=== PATIENT | female | born 1995 | race Caucasian/White ===

== ENCOUNTER 2017-12-16 17:57 | Outpatient (CLI) | payer OTHER ==
--- NOTE | 2017-12-16 19:32 | Non Stress Test Report ---
Non Stress Test Datetime Report Generated by CPN: 12/16/2017 19:32 DEMOGRAPHIC EGA NST: 36.0 INDICATION Indication for Study: Other Indication for Study (NST) Other: GDM VITAL SIGNS Temperature - NST: 98.8 Pulse - NST: 80 RESP - NST: 18 NBPSYS NST: 93 NBPDIA NST: 55 MONITORING Monitor Explained: Monitor Explained; Test Explained; Patient Verbalized Understanding Time on Monitor: 12/16/2017 18:15 Time off Monitor: 12/16/2017 18:40 NST Duration: 25 NST INTERVENTIONS NST Interventions: PO Hydration Physician Notified NST: Dr. Moreira BABY A: [id number] BABY A Movement : Present Contraction Frequency : 0 FHR Baseline : 120 Accelerations : 15X15 Decelerations : None Variability : Moderate 6-25bpm NST Review: Meets Criteria for Reactive NST NST Review and Verified By : Gonzales davis RN NST Results: Reactive NST REPORT Report Trigger: Send Report
== END 2017-12-16 19:00 | disposition home or self-care (01) ==
LOC: LC 17:57
PROVIDERS: ATTEND Obstetrics & Gynecology
PROC: 4A1HXCZ Monitoring of Products of Conception, Cardiac Rate, External Approach (ICD-10-PCS; principal; 2017-12-16)
DX: O24.419 Gestational diabetes mellitus in pregnancy, unspecified control (principal); Z3A.36 36 weeks gestation of pregnancy
CPT/HCPCS: 59025

== ENCOUNTER 2018-01-07 01:18 | Inpatient (IN) | payer OTHER ==
[2018-01-07 02:57] LABS: APPEARANCE,URINE SLIGHTLY-CLOUDY; BILIRUBIN,URINE NEGATIVE (NEGATIVE); COLOR,URINE YELLOW; GLUCOSE, URINE NEGATIVE (NEGATIVE); KETONES,URINE NEGATIVE (NEGATIVE); LEUKOCYTE ESTERASE,URINE NEGATIVE (NEGATIVE); NITRITE,URINE NEGATIVE (NEGATIVE); PROTEIN,URINE NEGATIVE (NEGATIVE); URINE SPECIFIC GRAVITY 1.015; UROBILINOGEN,URINE NEGATIVE mg/dL (<2.0)
--- NOTE | 2018-01-07 03:17 | Admission Physical ---
Datetime Report Generated by CPN: 01/07/2018 03:17 CURRENT ADMISSION Chief Complaint: Uterine Contractions Indication for Induction: Maternal Diabetes Admit Impression : Term, Intrauterine ; Active Labor Admit Plan: Admit to Unit; Initiate Labor Protocol ALLERGIES Medication Allergies: Yes Medication Allergies: Sulfa (Sulfonamide Antibiotics) (01/07/2018) Latex: No Latex Allergies OBSTETRICAL HISTORY EDC: 01/13/2018 00:00 : 2 Para: 1 Term: 1 Livin SEE RECORDS Alcohol: No Marijuana : No Cocaine: No Other Illicit Drugs: No Cigarettes: Never Smoker. [id number] PHYSICAL EXAM General: Normal HEENT: Normal Neurologic: Normal Thyroid: Normal Heart: Normal Lungs: Normal Breast: Normal Back: Normal Abdomen: Normal Genitourinary Exam: Normal Extremities: Normal DTRs: Normal Pelvic Type: Adequate Vital Signs: Reviewed VAGINAL EXAM Dilatation: 5 Effacement: 90 Station: -1 Contraction Comments: q 2-3 MEMBRANES Membranes: Intact FETUS A EGA: 39.1 Monitoring: External US FHR- Baseline: 120s Accelerations: 15X15 Decelerations: None FHR Category: Category I Admit Comment: Pt has h/o macrosomia. PLANS FOR LABOR AND DELIVERY Labor and Delivery: None Pain Management: Epidural Feeding Preference: Breast Circumcision: N/A INFORMED CONSENT Signature: with User ID: [email or web address]
[2018-01-07 03:22] LABS: URINE AMPHETAMINES SCREEN NEGATIVE; URINE BENZODIAZEPINES SCREEN NEGATIVE; URINE COCAINE SCREEN NEGATIVE; URINE MARIJUANA (THC) SCREEN NEGATIVE; URINE METHADONE SCREEN NEGATIVE; URINE PHENCYCLIDINE SCREEN NEGATIVE
[2018-01-07 03:30] LABS: URINE BARBITURATES SCREEN UNCONFIRMED POSITIVE
[2018-01-07] MEDS ORDERED: BUPIVACAINE HCL 0.5 % INJ/PF 30 ML SDV ONE (03:56)
[2018-01-07] MEDS ORDERED: EPHEDRINE SULFATE INJ 50 MG/1 ML AMPULE ONE (03:56)
[2018-01-07] MEDS ORDERED: FENTANYL/BUPIVACAINE/NS/PF 300 MCG/150 ML RTUINJ EPI ONE (03:56)
[2018-01-07 04:34] LABS: ABSOLUTE LYMPHOCYTES (AUTO) 2.3 10^3/uL (0.5-4.7); ABSOLUTE MONOCYTES (AUTO) 0.7 10^3/uL (0.1-1.4); ABSOLUTE NEUT (AUTO) 9.5 10^3/uL (1.7-8.2); BASOPHILS % (AUTO) 0.3 % (0-2); EOSINOPHILS % (AUTO) 0.4 % (0-6); HEMATOCRIT 37.9 % (36.0-47.0); LYMPHOCYTES % (AUTO) 18.5 % (13-45); MEAN CORPUSCULAR HEMOGLOBIN 30.3 pg (27.0-33.4); MEAN CORPUSCULAR HGB CONC 34.3 g/dL (32.0-36.0); MEAN CORPUSCULAR VOLUME 88 fl (80-97); MONOCYTES % (AUTO) 5.4 % (3-13); PLATELET COUNT 248 10^3/uL (150-450); RED CELL DISTRIBUTION WIDTH 13.5 % (11.5-14.0); SEGMENTED NEUTROPHILS % (AUTO) 75.4 % (42-78); TOTAL CELLS COUNTED % (AUTO) 100 %; WHITE BLOOD COUNT 12.6 10^3/uL (4.0-10.5)
[2018-01-07] MEDS ORDERED: OXYTOCIN 10 UNIT/ML VIAL ONE (04:56)
[2018-01-07] MEDS ORDERED: LIDOCAINE 1% INJ-PF (10 MG/ML) 30 ML SDV ONE (04:57)
[2018-01-07] MEDS ORDERED: OXYTOCIN/NORMAL SALINE 20 UNIT/1,000 ML RTUINJ ONE (04:57)
[2018-01-07] MEDS ORDERED: MISOPROSTOL 0.2 MG TABLET ONE (04:57)
[2018-01-07] MEDS ORDERED: ZOLPIDEM TARTRATE 5 MG TABLET PO PRN (06:17)
[2018-01-07] MEDS ORDERED: ACETAMINOPHEN WITH CODEINE #3 TABLET PO PRN ×2 (06:17)
[2018-01-07] MEDS ORDERED: BENZOCAINE/MENTHOL AEROSOL SPRAY 56 ML TOP PRN (06:17)
[2018-01-07] MEDS ORDERED: MEASLES,MUMPS&RUBELLA VACC/PF 0.5 ML VIAL SUBCUT PRN (06:17)
[2018-01-07] MEDS ORDERED: OXYTOCIN/NORMAL SALINE 20 UNIT/1,000 ML RTUINJ IV PRN (06:17)
[2018-01-07] MEDS ORDERED: DIPH/PERTUSS(ACELL)/TETANUS VAC/PF 0.5 ML SYR (>=10YO) IM PRN (06:17)
[2018-01-07] MEDS ORDERED: DIBUCAINE 1% OINTMENT 28 GM TP PRN (06:17)
--- NOTE | 2018-01-07 09:26 | Delivery Summary ---
Del Sum A-C Datetime Report Generated by CPN: 01/07/2018 09:25 DELIVERY PERSONNEL DELIVERY PERSONNEL: [id number] Delivery Doctor:: Zoe Bullard MD Labor and Delivery Nurse:: Tricia Rosales commercial correspondent Nurse:: Adelaida Serrato RN Nursery Nurse:: Huma Cedillo, RN MATERNAL INFORMATION Delivery Anesthesia: Epidural Medications After Delivery: Pitocin Drip 20 Units/1000ml NSS Maternal Complications: None LABOR SUMMARY EDC: 01/13/2018 00:00 No. Babies in Womb: 1 Attempted: No Labor Anesthesia: Epidural LABOR INFORMATION Reason for Induction: Not Applicable Complete Dilatation: 01/07/2018 05:10 Oxytocin: N/A Group B Beta Strep: neg (Annotations: Data stored by [facility] on behalf of user) Antibiotics # of Doses: 0 Steroids Given: None Reason Steroids Not Administered: Not Applicable Other Reason Not Administered: not indicated MEMBRANES Membranes Rupture Method: Spontaneous Rupture of Membranes: 01/07/2018 05:17 Length of Rupture (hr): 0.62 Amniotic Fluid Color: Clear Amniotic Fluid Amount: Moderate Amniotic Fluid Odor: Normal STAGES OF LABOR Stage 2 hr: 0 Stage 2 min: 44 Stage 3 hr: 0 Stage 3 min: 5 VAGINAL DELIVERY Episiotomy: None Laceration #1: Perineal Laceration Extension #1: First Degree Laceration Repair: Yes Sponge Count Correct: Yes Sharps Count Correct: Yes CSECTION DELIVERY Primary Indication: N/A CSection Incidence: N/A Labor: N/A Elective: N/A CSection Incision: N/A BABY A INFORMATION Infant Delivery Date/Time: 01/07/2018 05:54 Method of Delivery: Vaginal Born in Route : No : N/A Forceps: N/A Vacuum Extraction: N/A Shoulder Dystocia : No PRESENTATION/POSITION BABY A Presentation: Cephalic Cephalic Presentation: Vertex Breech Presentation: N/A PLACENTA INFORMATION BABY A Placenta Delivery Time : 01/07/2018 05:59 Placenta Method of Delivery: Spontaneous Placenta Status: Delivered SCORES BABY A Heart Rate 1 min: >100 bpm Resp Effort 1 min: Slow, Irregular Reflex Irritability 1 min: Cough or Sneeze or Pulls Away Muscle Tone 1 min: Active Motion Color 1 min: Body [place], Extremities Blue SCORE 1 MIN: 8 Heart Rate 5 min: >100 bpm Resp Effort 5 min: Good Cry Reflex Irritability 5 min: Cough or Sneeze or Pulls Away Muscle Tone 5 min: Active Motion Color 5 min: Body [place], Extremities Blue SCORE 5 MIN: 9 INFORMATION BABY A Gestational Age at Delivery: 39.1 Gestational Status: Full Term- 39- 40.6 Weeks Infant Outcome : Liveborn Condition : Stable Sex: Female IDENTIFICATION BABY A Infant Verification Date/Time: 01/07/2018 07:21 ID Band Number: [id number] Mother's Name Verified: Yes Infant RN Verifying Infant: Pedro RN/ Camron Gutierrez RN CORD INFORMATION BABY A No. Cord Vessels: 3 Nuchal Cord : N/A Cord Blood Taken: Yes-For Eval (Mom's Blood Type - or O+) Infant Suction: Mouth; Nose ASSESSMENT BABY A Infant Respirations: Appears Normal Skin to Skin: Yes Instructional Design Consultant/ALS Called : No Infant Care By: Arturo Foy RN Transferred To: Remains with Mother BABY B INFORMATION : N/A ASSESSMENT BABY B Skin to Skin Time (min): yes
[2018-01-07] MEDS: DOCUSATE SODIUM 100 MG CAPSULE PO SCH ×2 (10:20→18:09)
[2018-01-07] MEDS: SENNOSIDES/DOCUSATE 8.6-50 MG 1 EACH TABLET PO SCH (10:20)
[2018-01-07] MEDS: PRENATAL VITAMIN W DHA CAPSULE PO SCH (10:20)
[2018-01-07] MEDS: FERROUS SULFATE 325 MG TABLET PO SCH ×2 (10:20→18:08)
[2018-01-07] MEDS: IBUPROFEN 800 MG TABLET PO SCH ×2 (14:23→22:26)
[2018-01-07] MEDS ORDERED: FAMOTIDINE 20 MG TABLET PO ONE (22:30)
[2018-01-08] MEDS: IBUPROFEN 800 MG TABLET PO SCH ×3 (05:38→21:43)
[2018-01-08 08:19] LABS: HEMATOCRIT 36.3 % (36.0-47.0); HEMOGLOBIN 12.5 g/dL (12.0-15.5); MEAN CORPUSCULAR HEMOGLOBIN 30.6 pg (27.0-33.4); MEAN CORPUSCULAR HGB CONC 34.4 g/dL (32.0-36.0); MEAN CORPUSCULAR VOLUME 89 fl (80-97); PLATELET COUNT 228 10^3/uL (150-450); RED BLOOD COUNT 4.09 10^6/uL (3.72-5.28); RED CELL DISTRIBUTION WIDTH 13.7 % (11.5-14.0); WHITE BLOOD COUNT 10.7 10^3/uL (4.0-10.5)
[2018-01-08] MEDS: PRENATAL VITAMIN W DHA CAPSULE PO SCH (09:47)
[2018-01-08] MEDS: SENNOSIDES/DOCUSATE 8.6-50 MG 1 EACH TABLET PO SCH (09:47)
[2018-01-08] MEDS: DOCUSATE SODIUM 100 MG CAPSULE PO SCH ×2 (09:47→18:20)
[2018-01-08] MEDS: FERROUS SULFATE 325 MG TABLET PO SCH ×2 (09:47→18:20)
--- NOTE | 2018-01-08 10:37 | PDOC PROGRESS REPORT ---
Subjective-OB Progress Note for:: 01/08/18 Subjective: reports bleeding slowing, pain controlled with current meds, denies needs Physical Exam (OB) Vital Signs: Temp Pulse Resp BP Pulse Ox 98.7 F 76 18 125/74 99 01/08/18 07:51 01/08/18 07:51 01/08/18 07:51 01/08/18 07:51 01/08/18 07:51 Intake & Output 01/07/18 01/08/18 01/09/18 06:59 06:59 06:59 Intake Total 400 Balance 400 Weight 108.5 kg - Abdomen Description: Soft Hernia Present: No Fundal Description: Firm, Midline Fundal Height: u/3 - u/4 - Abdominal Distension: No distension Tenderness: Nontender - Extremities Lower extremities: Mena's sign - neg Calf: Normal, Nontender Objective-Diagnostic Laboratory: 01/08/18 07:44 01/08/18 01/08/18 07:44 07:44 WBC 10.7 H RBC 4.09 Hgb 12.5 Hct 36.3 MCV 89 MCH 30.6 MCHC 34.4 RDW 13.7 Plt Count 228 Blood Type B NEGATIVE Assessment and Plan(PN) - Assessment and Plan (1) Normal vaginal delivery Is this a current diagnosis for this admission?: Yes (2) Obstetrical laceration Is this a current diagnosis for this admission?: Yes - Time Spent with Patient Time with patient: Less than 15 minutes Medications reviewed and adjusted accordingly: Yes - Disposition Anticipated Discharge: Home Within: within 24 hours
[2018-01-09] MEDS: IBUPROFEN 800 MG TABLET PO SCH (05:03)
[2018-01-09 08:19] VITALS: BP 106/57
[2018-01-09] MEDS: DOCUSATE SODIUM 100 MG CAPSULE PO SCH (09:07)
[2018-01-09] MEDS: SENNOSIDES/DOCUSATE 8.6-50 MG 1 EACH TABLET PO SCH (09:07)
[2018-01-09] MEDS: PRENATAL VITAMIN W DHA CAPSULE PO SCH (09:07)
[2018-01-09] MEDS: FERROUS SULFATE 325 MG TABLET PO SCH (09:07)
[2018-01-09] MEDS ORDERED: FAMOTIDINE 20 MG TABLET PO ONE ×2 (10:03)
--- NOTE | 2018-01-09 10:40 | PDOC PROGRESS REPORT ---
Subjective-OB Progress Note for:: 01/09/18 Subjective: Follow up at [facility] [place] in 4 wks or prn. Pelvic rest x 4-6 wks. Physical Exam (OB) Vital Signs: Temp Pulse Resp BP Pulse Ox 98.1 F 65 17 106/57 L 100 01/09/18 07:53 01/09/18 07:53 01/09/18 07:53 01/09/18 07:53 01/09/18 07:53 Intake & Output 01/08/18 01/09/18 01/10/18 06:59 06:59 06:59 Intake Total 400 300 Balance 400 300 - PIH/Pre-Eclampsia DTR's: 2 + Clonus: Negative Headache: Absent Epigastric Pain: No Visual Changes: No - Lochia Lochia Amount: Small 10-25 ml Lochia Color: Rubra/Red - Abdomen Description: Soft Hernia Present: No Bowel Sounds: Normoactive Flatus Presence: Present Stool: No Fundal Description: Firm, Midline Fundal Height: u/u - u/2 Objective-Diagnostic Laboratory: 01/08/18 07:44 01/08/18 07:44 Blood Type B NEGATIVE Assessment and Plan(PN) - Time Spent with Patient Medications reviewed and adjusted accordingly: Yes - Disposition Anticipated Discharge: Home
--- NOTE | 2018-01-09 10:50 | PDOC DISCHARGE SUMMARY ---
Final Diagnosis Discharge Date: 01/09/18 - Final Diagnosis (2) Normal vaginal delivery Is this a current diagnosis for this admission?: Yes (3) Obstetrical laceration Is this a current diagnosis for this admission?: Yes Discharge Data - Discharge Medication Prescriptions: Docusate Sodium [Colace 100 mg Capsule] 100 mg PO BID #60 capsule Vit/Dha [ Multi + Dha Capsule] 1 cap PO DAILY #30 capsule Home Medications: 118/Iron/Folate 6/Dha [[facility] Softgel] 1 tab PO DAILY 12/16/17 Docusate Sodium [Colace 100 mg Capsule] 100 mg PO BID #60 capsule 01/09/18 Vit/Dha [ Multi + Dha Capsule] 1 cap PO DAILY #30 capsule 01/09 Gestational Age: 39.1 wks Reason(s) for Admission: Onset of Labor Procedures: Ultrasound Intrapartum Procedure(s): Spontaneous Vaginal Delivery Complication(s): Laceration-Perineal Laceration-Degree: 1st - [place] Data Baby 1 Female at 1 minute: 8 at 5 minutes: 9 Weight: 3.827 kg Home with Mother: Yes Complications: No - Diagnosis Test Laboratory: Temp Pulse Resp BP Pulse Ox 98.1 F 65 17 106/57 L 100 01/09/18 07:53 01/09/18 07:53 01/09/18 07:53 01/09/18 07:53 01/09/18 07:53 01/07/18 01/07/18 01/08/18 01:33 04:21 07:44 RBC 4.30 4.09 Hgb 13.0 12.5 Hct 37.9 36.3 Urine Opiates Screen NEGATIVE - Discharge information/Instructions Discharge Activity: Activity As Tolerated, Balance Activity w/Rest, Pelvic Rest , Slowly Increase Activity, No tub bath Discharge Diet: Regular Disposition: HOME, SELF-CARE Follow up with: [facility] in: 4, Weeks
== END 2018-01-09 13:58 | disposition home or self-care (01) | DRG 807 ==
LOC: LC 01:18 → LR 03:11 → 2S 09:00
PROVIDERS: ADMIT Obstetrics & Gynecology; ATTEND Obstetrics & Gynecology
PROC: 10E0XZZ Delivery of Products of Conception, External Approach (ICD-10-PCS; principal; 2018-01-07)
PROC: 0HQ9XZZ Repair Perineum Skin, External Approach (ICD-10-PCS; 2018-01-07)
PROC: 4A1HXCZ Monitoring of Products of Conception, Cardiac Rate, External Approach (ICD-10-PCS; 2018-01-07)
PROC: 3E0234Z Introduction of Serum, Toxoid and Vaccine into Muscle, Percutaneous Approach (ICD-10-PCS; 2018-01-08)
DX: O24.92 Unspecified diabetes mellitus in childbirth (principal); Z37.0 Single live birth; O71.9 Obstetric trauma, unspecified; O26.893 Other specified pregnancy related conditions, third trimester; Z67.21 Type B blood, Rh negative; Z88.2 Allergy status to sulfonamides; Z3A.39 39 weeks gestation of pregnancy
CPT/HCPCS: 36415; 80307; 80345; 81005; 85025; 85027; 85461; 86592; 86850; 86900; 86901; 94760; G0480; J2590; J2790; J3010; J3490

== ENCOUNTER 2018-03-28 07:28 | Day surgery (SDC) | payer OTHER ==
[2018-03-28 08:07] LABS: ABSOLUTE BASOPHILS # (AUTO) 0.1 10^3/uL (0.0-0.2); ABSOLUTE LYMPHOCYTES (AUTO) 2.1 10^3/uL (0.5-4.7); ABSOLUTE MONOCYTES (AUTO) 0.4 10^3/uL (0.1-1.4); BASOPHILS % (AUTO) 0.9 % (0-2); EOSINOPHILS % (AUTO) 0.8 % (0-6); HEMATOCRIT 39.7 % (36.0-47.0); LYMPHOCYTES % (AUTO) 37.3 % (13-45); MEAN CORPUSCULAR HEMOGLOBIN 30.5 pg (27.0-33.4); MEAN CORPUSCULAR HGB CONC 35.4 g/dL (32.0-36.0); MEAN CORPUSCULAR VOLUME 86 fl (80-97); MONOCYTES % (AUTO) 6.6 % (3-13); PLATELET COUNT 260 10^3/uL (150-450); RED BLOOD COUNT 4.59 10^6/uL (3.72-5.28); RED CELL DISTRIBUTION WIDTH 13.4 % (11.5-14.0); SEGMENTED NEUTROPHILS % (AUTO) 54.4 % (42-78); TOTAL CELLS COUNTED % (AUTO) 100 %; WHITE BLOOD COUNT 5.6 10^3/uL (4.0-10.5)
[2018-03-28 08:11] LABS: INTERNATIONAL RATION (INR) 0.96; PROTHROMBIN TIME 13.3 SEC (11.4-15.4)
[2018-03-28 08:12] LABS: PARTIAL THROMBOPLASTIN TIME 26.8 SEC (23.5-35.8)
[2018-03-28 08:13] LABS: ANION GAP 9 (5-19); BLOOD UREA NITROGEN 15 mg/dL (7-20); CALCIUM 9.7 mg/dL (8.4-10.2); CARBON DIOXIDE 27 mmol/L (22-30); CHLORIDE 106 mmol/L (98-107); GLUCOSE 90 mg/dL (75-110); POTASSIUM 4.4 mmol/L (3.6-5.0); SODIUM 142.1 mmol/L (137-145)
[2018-03-28] MEDS ORDERED: NALOXONE HCL INJ/PF 0.4 MG/1 ML SDV ONE (08:33)
[2018-03-28] MEDS ORDERED: ONDANSETRON HCL INJ/PF 4 MG/2 ML SDV ONE (08:33)
[2018-03-28] MEDS ORDERED: DIPHENHYDRAMINE HCL 50 MG/ML VIAL ONE (08:33)
[2018-03-28] MEDS ORDERED: LIDOCAINE 2% JELLY 5 ML TUBE ONE (08:34)
[2018-03-28] MEDS ORDERED: LIDOCAINE 2% INJ-PF (100 MG/5 ML) SYRINGE ONE (08:34)
[2018-03-28] MEDS ORDERED: GLUCAGON,HUMAN RECOMB 1 MG INJ ONE (08:34)
[2018-03-28] MEDS ORDERED: FLUMAZENIL INJ 0.5 MG/5 ML VIAL ONE (08:34)
[2018-03-28] MEDS ORDERED: EPINEPHRINE INJ 1 MG/10 ML DISP.SYRIN ONE (08:34)
[2018-03-28] MEDS ORDERED: LIDOCAINE 2% INJ (20 MG/ML) 20 ML MDV ONE (08:36)
[2018-03-28] MEDS ORDERED: EPINEPHRINE INJ/PF 1 MG/1 ML AMPULE ONE (08:36)
[2018-03-28] MEDS: MIDAZOLAM 2 MG/2 ML INJ ONE ×10 (08:55→09:08)
[2018-03-28] MEDS: FENTANYL CITRATE INJ/PF 100 MCG/2 ML AMPUL ONE ×3 (09:00→09:10)
[2018-03-28 10:21] VITALS: BP 106/53
--- NOTE | 2018-03-28 11:57 | OPERATIVE REPORT E ---
Operative Report NAME: ADAIR MONTES : 1995 AGE: 23Y DATE OF SURGERY: 03/28/2018 ROOM: PREOPERATIVE DIAGNOSIS: LEFT LOWER LOBE MASS/INFILTRATE, POSTERIOR BASAL SEGMENT. POSTOPERATIVE DIAGNOSIS: OPERATION: Flexible bronchoscopy. SURGEON: BENIGNO WOODALL M.D. ANESTHESIA: Topical using 1% and 2% lidocaine solutions. Conscious sedation using IV Versed and IV fentanyl. SPECIMENS REMOVED: 1. Bronchial washings, both lungs. 2. Bronchoalveolar lavage specimen from the left lower lobe, posterior basal segment. ESTIMATED BLOOD LOSS: None. INDICATION FOR PROCEDURE: Patient is a 23-year-old female presenting with left lower lobe pulmonary infiltrate, left pulmonary mass. 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 Denies any fevers, chills, increasing cough or sputum production. Patient undergoing flexible bronchoscopy today. PROCEDURE: Consent was obtained from patient. Patient verbalized understanding of the indications, risks and potential complications of the procedure. The patient was connected to the natural sciences professor, pulse oximeter, blood pressure monitor and respiratory monitor. Then 2% lidocaine solution was given via nebulizer for a total dose of 5 mL. Hurricane spray x5 was applied to the posterior pharyngeal wall and 1% lidocaine gel was applied with a cotton swab to the posterior pharyngeal area. Patient was given Versed in increments of 0.5 mg for a total dose of 5 mg, and fentanyl in increments of 25 mcg for a total dose of 75 mcg. The flexible bronchoscope was inserted through the mouth guard and 1% lidocaine solution in aliquots of 1 to 2 mL was given in the oropharyngeal area, vocal cords, trachea, carmencita, left and right mainstem bronchi and segmental airways, through which the flexible bronchoscope was advanced. Vocal cords appeared normal. Trachea appeared normal. No lesions noted. Carmencita were sharp, midline. Right upper lobe, right lower lobe and right middle lobe bronchi appeared patent and normal. No erythema or swelling noted. The left lower lobe mainstem bronchus appeared normal. Left upper lobe bronchi appeared normal. The left lower lobe bronchi appeared normal. No endobronchial lesions noted. Bronchoalveolar washings were performed of both lungs and bronchial lavage was performed twice of the left lower lobe. We sent the bronchial washings and bronchial lavage for cytology, for cultures, AFB, bacteria and fungus. Would recommend followup in 2 to 3 weeks from today. Patient agreed to go home today. Patient instructed to come back to the emergency room if having more chest pain or increased shortness of breath for further evaluation and management. DICTATING PHYSICIAN: BENIGNO WOODALL MD,CHAKA,MPH [id number] PHY#: [id number] ID: [id number] JOB#: [id number] ACCT: [id number] cc:BENIGNO WOODALL M.D. > MTDGonzales
== END 2018-03-28 10:30 | disposition home or self-care (01) ==
LOC: END 07:28
PROVIDERS: ATTEND Internal Medicine Critical Care Medicine
DX: R91.8 Other nonspecific abnormal finding of lung field (principal); R76.11 Nonspecific reaction to tuberculin skin test without active tuberculosis; F17.210 Nicotine dependence, cigarettes, uncomplicated; Z20.1 Contact with and (suspected) exposure to tuberculosis; E66.9 Obesity, unspecified; Z68.33 Body mass index [BMI] 33.0-33.9, adult
CPT/HCPCS: 31624; 36415; 87070; 87205; 87206; 87116; 87101; 85025; 85610; 85730; 87077; 80048; 87015; 88162; J2250; J3490; J3010; J0171; J1200; J1610; J2001; J2310; J2405